=== PATIENT | male | born 1990 | race Caucasian/White ===

== ENCOUNTER 2023-06-06 14:21 | Emergency (ER) | payer OTHER ==
[2023-06-06 14:46] VITALS: BP 129/72; PULSE 77; RESP 18; TEMP 98.2; BMI 29.8
[2023-06-06] MEDS ORDERED: FLUORESCEIN NA 1 EA STRIP OS ONE (14:55)
[2023-06-06] MEDS ORDERED: TETRACAINE 0.5% HCL 0.6ML DROPPER.BOTTLE OS ONE (14:55)
[2023-06-06] MEDS ORDERED: FLUORESCEIN NA 1 EA STRIP ONE (14:58)
== END 2023-06-06 15:35 | disposition home or self-care (01) ==
LOC: JERFT 14:21
DX: H57.12 Ocular pain, left eye (principal); S05.02XA Injury of conjunctiva and corneal abrasion without foreign body, left eye, initial encounter; X58.XXXA Exposure to other specified factors, initial encounter
CPT/HCPCS: 99283-25

== ENCOUNTER 2024-03-18 10:42 | Emergency (ER) | payer OTHER ==
[2024-03-18 10:49] VITALS: BP 154/82; PULSE 94; RESP 20; TEMP 98.2; BMI 34.2
[2024-03-18] MEDS ORDERED: IBUPROFEN 400 MG TABLET (FP) PO ONE (11:45)
[2024-03-18] MEDS: IBUPROFEN 400 MG TABLET (FP) PO ONE (11:48)
== END 2024-03-18 12:00 | disposition home or self-care (01) ==
LOC: JERFT 10:42
DX: J01.90 Acute sinusitis, unspecified (principal); B97.89 Other viral agents as the cause of diseases classified elsewhere; J06.9 Acute upper respiratory infection, unspecified; R09.81 Nasal congestion; R50.9 Fever, unspecified; H92.01 Otalgia, right ear; R05.9 Cough, unspecified; Z20.822 Contact with and (suspected) exposure to COVID-19
CPT/HCPCS: 0241U-QW; 99283-25